=== PATIENT | female | born 1940 ===

== ENCOUNTER 2018-07-20 07:14 | Day surgery (SDC) | payer MEDICARE, BC ==
[~2018-07-20 07:14] MED LIST: Acetaminophen TAB* 325 MG PO PRN; Buffered Lidocaine 0.9% SYRIN* 5 ML/SYR SYRINGE INTRADERM ONE
[2018-07-20] MEDS ORDERED: Atenolol TAB* 50 MG ONE (08:26)
[2018-07-20] MEDS ORDERED: Midazolam* 1 MG/ML 2 ML VIAL (2 MG) ONE (09:53)
[2018-07-20 10:46] VITALS: BP 165/84
[2018-07-20] MEDS ORDERED: Acetaminophen TAB* 325 MG ONE (10:47)
--- NOTE | 2018-07-20 12:10 | OP ---
OPERATIVE NOTE: DATE OF OPERATION: 07/20/18. DATE OF : 38. SURGEON: Linden Berkowitz M.D. PREOPERATIVE DIAGNOSIS: Cataract, right eye. POSTOPERATIVE DIAGNOSIS: Cataract, right eye. OPERATIVE PROCEDURE: Extracapsular cataract extraction with intraocular lens implant right eye. PROCEDURE: The patient was brought to the operating room after being given 1/2% Alcaine with epineph rine drops in the preoperative area. The eye was prepped and draped in the usual sterile fashion. S terile drape and eyelid speculum were placed. Again, topical 1/2% Alcaine with epinephrine was given . A paracentesis incision was made at the 9 o'clock position with the No.75 blade. Clear cornea inc ision 2.2 x 2.2-mm was created at the 12 o'clock position starting at the anterior limbus using the 2 .2-mm keratome. The anterior chamber was irrigated with 0.4 mL of 1% non-preservative intracameral l idocaine and filled with DisCoVisc. A capsulorrhexis was completed using the cystotome and the Utrat a forceps. Hydrodissection was performed with balanced salt solution. The lens nucleus was removed w ith the Phacoemulsification handpiece without incident. Cortex was removed with the irrigation-aspir ation handpiece. The capsular bag was re-inflated using DisCoVisc and an SN60WF 25.5 implant was ins erted with the shooter. The irrigation-aspiration handpiece was used to remove all residual DisCoVis c. The eye was refilled with balanced salt solution and the wound checked and found to be watertight . Topical Maxitrol drops were given. [id number]/[facility] #: [id number]
[2018-07-20] MEDS ORDERED: Cyclopentolate 1% OPTH.SOL* 2 ML BTL ONE (12:53)
[2018-07-20] MEDS ORDERED: acetaZOLAMIDE TAB* 250 MG ONE (12:53)
[2018-07-20] MEDS ORDERED: Neomycin/Polymy/Dex OPTH.SUSP* MAXITROL 0.1% 5 ML ONE (12:53)
[2018-07-20] MEDS ORDERED: Proparacaine 0.5% OPHTH.SOL* 15 ML BTL ONE (12:53)
[2018-07-20] MEDS ORDERED: Lidocaine 2% EPI 1:200000 MPF*10-20 ML VIAL ONE (12:53)
[2018-07-20] MEDS ORDERED: Povidone Iodine 5% OPTH* 30 ML BTL ONE (12:53)
[2018-07-20] MEDS ORDERED: Lidocaine 1%* 5 ML VIAL ONE (12:53)
[2018-07-20] MEDS ORDERED: Ketorolac 0.5% OPHTH (NF) 0.5 % 5 ML BTL ONE (12:53)
== END 2018-07-20 10:53 | disposition home or self-care (01) ==
LOC: OREAST 07:14
PROVIDERS: ATTEND Specialist
DX: H25.811 Combined forms of age-related cataract, right eye (principal); I10 Essential (primary) hypertension; M15.0 Primary generalized (osteo)arthritis; I69.30 Unspecified sequelae of cerebral infarction
CPT/HCPCS: A9270-GY; J2250; V2632